=== PATIENT | male | born 1985 | race Hispanic/Latino ===

== ENCOUNTER 2023-09-26 18:37 | Emergency (ER) | payer BC, OTHER ==
[~2023-09-26] VITALS: Ht 167.6 cm; Wt 84.4 kg
[2023-09-26] MEDS: SODIUM CHLORIDE 0.9% 1000ML 2,000 ML IV STA (19:11)
[2023-09-26] MEDS ORDERED: KETOROLAC TROMETHAMINE 30 MG/ML VIAL ONE ×2 (19:12→23:19)
[2023-09-26 19:16] LABS: BASOPHILS # (AUTO) 0.1 (0.0-0.1); BASOPHILS % 0.5 % (0.0-1.0); EOSINOPHILS # (AUTO) 0.1 (0.0-0.4); HEMATOCRIT 38.4 % (38.2-49.6); HEMOGLOBIN 13.6 g/dL (14.0-18.0); LYMPHOCYTES # (AUTO) 2.8 (1.0-3.2); MEAN CORPUSCULAR HEMOGLOBIN 31.9 pg (28-32); MEAN CORPUSCULAR HGB CONC 35.4 g/dL (31-35); MEAN CORPUSCULAR VOLUME 90.1 fL (81-99); MONOCYTES # (AUTO) 0.7 (0.2-0.8); MONOCYTES % 7.1 % (4.4-11.3); NEUTROPHILS # (AUTO) 6.4 (2.1-6.9); NEUTROPHILS % 63.2 % (38.7-80.0); PLATELET COUNT 232 x10e3/uL (140-360); RED BLOOD COUNT 4.26 x10e6/uL (4.3-5.7); RED CELL DISTRIBUTION WIDTH 13.1 % (11.7-14.4); WHITE BLOOD COUNT 10.06 x10e3/uL (4.8-10.8)
[2023-09-26 19:33] LABS: ALBUMIN 3.9 g/dL (3.5-5.0); ALBUMIN/GLOBULIN RATIO 1.7 (0.8-2.0); ANION GAP 13.1 mmol/L (8-16); BILIRUBIN,TOTAL 1.2 mg/dL (0.2-1.2); CALCIUM 8.5 mg/dL (8.4-10.2); CREATININE, SERUM 0.91 mg/dL (0.72-1.25); TOTAL PROTEIN 6.2 g/dL (6.5-8.1)
[2023-09-26 19:34] LABS: POTASSIUM 3.1 mmol/L (3.5-5.1)
[2023-09-26] MEDS: KETOROLAC TROMETHAMINE 30 MG/ML VIAL IV STA ×2 (19:37→23:31)
[2023-09-26] MEDS: ONDANSETRON HCL INJ 2MG/ML 2ML 2 MG/ML VIAL IV STA ×2 (20:56→21:00)
[2023-09-26] MEDS: Morphine 4mg INJECTION 4 MG/ML INJ IV STA (21:01)
[2023-09-26 21:08] LABS: BILIRUBIN,URINE NEGATIVE (NEGATIVE); CLARITY,URINE SL CLOUDY (CLEAR); COLOR,URINE YELLOW (YELLOW); GLUCOSE, URINE NEGATIVE (NEGATIVE); KETONES,URINE NEGATIVE (NEGATIVE); LEUKOCYTE ESTERASE ,URINE NEGATIVE (NEGATIVE); NITRITE,URINE NEGATIVE (NEGATIVE); PH,URINE 6 (5 - 7); PROTEIN,URINE DIPSTICK NEGATIVE (NEGATIVE); URINE UROBILINOGEN 0.2 mg/dL (0.2 - 1)
[2023-09-26 21:18] LABS: BACTERIA,URINE FEW /HPF; YEAST,URINE RARE
[2023-09-26] MEDS ORDERED: KETOROLAC TROME10 MG PO (23:13)
[2023-09-26] MEDS ORDERED: ONDANSETRON ODT4 MG PO (23:13)
[2023-09-26] MEDS ORDERED: ULTRAM 50MG50 MG PO (23:13)
[2023-09-26] MEDS ORDERED: FLOMAX0.4 MG PO (23:13)
[2023-09-26 23:31] VITALS: PULSE 76; RESP 16; TEMP 98.3; O2SAT 100
== END 2023-09-26 23:35 | disposition home or self-care (01) ==
LOC: ER 18:40
DX: R19.7 Diarrhea, unspecified (principal); N20.2 Calculus of kidney with calculus of ureter; R10.30 Lower abdominal pain, unspecified; K76.0 Fatty (change of) liver, not elsewhere classified; Z87.19 Personal history of other diseases of the digestive system
CPT/HCPCS: 36415; 74176; 80053; 81001; 83690; 85025; 99284; J1885; J2270; J2405; J7030